=== PATIENT | male | born 1990 | race Caucasian/White ===

== ENCOUNTER 2018-02-10 03:03 | Emergency (ER) | payer OTHER ==
[2018-02-10] MEDS ORDERED: KETOROLAC 30 MG/ML VIAL (J1885) As Ordered (03:24)
[2018-02-10] MEDS ORDERED: MORPHINE 4 MG/ML 1ML VIAL/SYRINGE (J2270) As Ordered (03:25)
[2018-02-10] MEDS: KETOROLAC 30 MG/ML VIAL (J1885) IV (03:43)
[2018-02-10] MEDS: MORPHINE 4 MG/ML 1ML VIAL/SYRINGE (J2270) IV (03:43)
[2018-02-10] MEDS: NS 1,000 ML IV (03:45)
[2018-02-10 03:52] LABS: HEMATOCRIT 43.8 % (42.0-52.0); MEAN CORPUSCULAR HEMOGLOBIN 31.4 pg (27.0-33.0); MEAN CORPUSCULAR HGB CONC 34.2 g/dl (32.0-36.5); MEAN CORPUSCULAR VOLUME 91.6 fl (80.0-96.0); PLATELET COUNT, AUTOMATED 310 10^3/uL (150-450); RED BLOOD COUNT 4.78 10^6/uL (4.30-6.10); RED CELL DISTRIBUTION WIDTH 12.8 % (11.5-14.5); WHITE BLOOD COUNT 9.8 10^3/uL (4.0-10.0)
[2018-02-10 03:56] LABS: ADD MANUAL DIFFER YES; DIFF SLIDE NUMBER 80; POSITIVE DIFF POS FLAG
[2018-02-10] MEDS: HYDROMORPHONE HCL 0.5 MG/ 0.5 ML SYRINGE (J1170 PER 1) IV ×2 (03:58→05:50)
[2018-02-10] MEDS ORDERED: GASTROGRAFIN SOLUTION 30ML (Q9963) As Ordered (04:05)
[2018-02-10 04:12] LABS: ANION GAP 7 MEQ/L (8-16); BLOOD UREA NITROGEN 9 MG/DL (7-18); CALCIUM LEVEL 8.9 MG/DL (8.5-10.1); CARBON DIOXIDE LEVEL 29 MEQ/L (21-32); CHLORIDE LEVEL 108 MEQ/L (98-107); CREATININE FOR GFR 1.12 MG/DL (0.70-1.30); GLOMERULAR FILTRATION RATE > 60.0 (>60); GLUCOSE, FASTING 111 MG/DL (70-100); POTASSIUM SERUM 3.9 MEQ/L (3.5-5.1); SODIUM LEVEL 144 MEQ/L (136-145)
[2018-02-10 04:20] LABS: ATYPICAL LYMPH 2 % (0-5); EOSINOPHILS 2 % (0-5); LYMPHOCYTES 49 % (16-52); MONOCYTES 8 % (0-8); NEUTROPHILS 39 % (35-75); PLATELET ESTIMATE NORMAL (NORMAL)
[2018-02-10] MEDS: GASTROGRAFIN SOLUTION 30ML PO ×2 (04:28→04:59)
[2018-02-10 04:54] LABS: AMORPHOUS SEDIMENT MODERATE (NEGATIVE); APPEARANCE, URINE TURBID (CLEAR); BACTERIA, URINE AUTO NEGATIVE (NEGATIVE); BILIRUBIN, URINE AUTO NEGATIVE (NEGATIVE); BLOOD, URINE BLOOD 3+ (NEGATIVE); COLOR, URINE YELLOW (YELLOW); GLUCOSE, URINE (UA) AUTO NEGATIVE (NEGATIVE); KETONE, URINE AUTO 1+ mg/dL (NEGATIVE); LEUKOCYTE ESTERASE, URINE AUTO NEGATIVE (NEGATIVE); MUCUS, URINE SMALL (NEGATIVE); NITRITE, URINE AUTO NEGATIVE (NEGATIVE); PROTEIN, URINE AUTO 1+ mg/dL (NEGATIVE); RBC, URINE AUTO TNTC /HPF (0-3); SPECIFIC GRAVITY URINE AUTO 1.019 (1.002-1.035); SQUAMOUS EPITHELIAL CELL UR AU 0 /HPF (0-6); WBC, URINE AUTO 0 /HPF (0-3)
[2018-02-10] MEDS ORDERED: ISOVUE-370 76% 100ML VIAL (Q9967) As Ordered (05:34)
[2018-02-10] MEDS: TAMSULOSIN 0.4 MG CAP PO (07:19)
== END 2018-02-10 07:51 | disposition home or self-care (01) ==
LOC: M ED 03:03
DX: N20.1 Calculus of ureter (principal); N13.4 Hydroureter
CPT/HCPCS: J2270

== ENCOUNTER 2018-07-15 19:52 | Emergency (ER) | payer OTHER ==
[~2018-07-15] VITALS: Ht 188 cm; Wt 93.2 kg
[~2018-07-15 19:52] MED LIST: FLOM0.4C39 PO
[2018-07-15 19:53] VITALS: BP 119/76
[2018-07-15] MEDS ORDERED: ONDANSETRON 4 MG ORAL DISINTEGRATING TAB (Q0162 PER 1MG) PO ONE (20:45)
[2018-07-15 21:39] LABS: INFLUENZA A AMPLIFICATION NEGATIVE (NEGATIVE); INFLUENZA B AMPLIFICATION NEGATIVE (NEGATIVE)
[2018-07-15] MEDS ORDERED: NS 1,000 ML IV ONE (22:15)
[2018-07-15] MEDS ORDERED: METOCLOPRAMIDE INJ 10MG/2ML VIAL (J2765) IV ONE (22:15)
[2018-07-15 22:24] LABS: BASO % 0.2 % (0.0-1.0); EOS # 0.1 10^3/uL (0.0-0.50); EOS % 0.6 % (0.0-3.0); HEMATOCRIT 50.1 % (42.0-52.0); LYMPH # 0.9 10^3/uL (1.5-6.5); LYMPH % 7.4 % (24.0-44.0); MEAN CORPUSCULAR HEMOGLOBIN 30.8 pg (27.0-33.0); MEAN CORPUSCULAR HGB CONC 33.9 g/dl (32.0-36.5); MEAN CORPUSCULAR VOLUME 90.8 fl (80.0-96.0); MONO # 0.8 10^3/uL (0.0-0.8); MONO % 6.8 % (0.0-5.0); NEUTROPHILS # 10.4 10^3/uL (1.8-7.7); NEUTROPHILS % 84.6 % (36.0-66.0); PLATELET COUNT, AUTOMATED 300 10^3/uL (150-450); RED BLOOD COUNT 5.52 10^6/uL (4.30-6.10); WHITE BLOOD COUNT 12.3 10^3/uL (4.0-10.0)
[2018-07-15 22:42] LABS: ALBUMIN 4.6 GM/DL (3.2-5.2); ALT/SGPT 38 U/L (12-78); BILIRUBIN,DIRECT 0.2 MG/DL (0.0-0.2); BILIRUBIN,TOTAL 0.7 MG/DL (0.2-1.0); BLOOD UREA NITROGEN 16 MG/DL (7-18); CALCIUM LEVEL 9.1 MG/DL (8.5-10.1); CARBON DIOXIDE LEVEL 31 MEQ/L (21-32); CHLORIDE LEVEL 102 MEQ/L (98-107); CREATININE FOR GFR 1.02 MG/DL (0.70-1.30); GLOMERULAR FILTRATION RATE > 60.0 (>60); GLUCOSE, FASTING 99 MG/DL (70-100); LIPASE 231 U/L (73-393); POTASSIUM SERUM 4.4 MEQ/L (3.5-5.1); SODIUM LEVEL 139 MEQ/L (136-145); TOTAL PROTEIN 8.2 GM/DL (6.4-8.2)
== END 2018-07-15 22:46 | disposition left against medical advice (07) ==
LOC: M ED 19:52
DX: R11.10 Vomiting, unspecified (principal); Z53.20 Procedure and treatment not carried out because of patient's decision for unspecified reasons
CPT/HCPCS: 80048; 80076; 83690; 85025; 87502; 96374; 99283; J2765; Q0162

== ENCOUNTER → 2019-04-09 | Outpatient (CLI) | payer OTHER ==
--- NOTE | 2019-04-14 15:44 | REP ---
MRI RIGHT KNEE: TECHNIQUE: Axial proton density fat saturation, sagittal proton density T2 STIR, water excitation, coronal proton density, proton density fat saturation. COMPARISON: MRI [facility] 03/21/2016. Once again there is a truncated appearance of the lateral meniscus status post partial lateral meniscectomy 06/11/2015. There is stable irregularity along the undersurface of the posterior horn of the lateral meniscus compatible with stable fraying. No new meniscal tear is seen. Cruciate and collateral ligaments are intact. Extensor mechanism is intact. There is mild diffuse chondromalacia along the lateral femoral condyle and tibial plateau which appears unchanged. No osteochrondral defect is seen. No abnormal bone marrow signal is seen. There is no bone marrow edema or occult fracture. There is a small joint effusion. No popliteal cyst is seen. IMPRESSION: Truncated appearance of the lateral meniscus is stable status post partial lateral meniscectomy. There is fraying along the undersurface of the posterior horn of the meniscus which is stable. No new meniscal tear is seen. The cruciate and collateral ligaments are intact. There is mild diffuse chondromalacia of the lateral femoral condyle and tibial plateau which also appears essentially unchanged. No new findings. Electronically Signed by Gildardo Ott MD 04/14/2019 11:43 P
== END ==
LOC: M RAD 07:16
PROVIDERS: ATTEND Nurse Practitioner Adult Health
DX: M23.8X1 Other internal derangements of right knee (principal)